=== PATIENT | female | born 1995 | race African-American/Black ===

== ENCOUNTER 2018-09-08 11:03 | Emergency (ER) | payer OTHER ==
[~2018-09-08] VITALS: Ht 160 cm; Wt 68.0 kg
[~2018-09-08 11:03] MED LIST: ACCUNEB SO1.25 MG/1 INH; IBUPROFEN 800800 M1 PO; IBUPROFEN 800800 MG PO; PREDNISONE 20 M20 MG PO; TESSALON PERLE100 MG PO
[2018-09-08] MEDS ORDERED: TESSALON PERLE100 M1 PO (11:40)
[2018-09-08] MEDS ORDERED: ROBITUSSIN COU237 M2 PO (11:40)
[2018-09-08 12:27] VITALS: BP 125/80
== END 2018-09-08 12:31 | disposition home or self-care (01) ==
LOC: ER 11:03
DX: J00 Acute nasopharyngitis [common cold] (principal); R10.9 Unspecified abdominal pain; J45.909 Unspecified asthma, uncomplicated

== ENCOUNTER 2021-04-09 08:34 | Emergency (ER) | payer OTHER ==
[~2021-04-09] VITALS: Ht 160 cm; Wt 66.7 kg
[~2021-04-09 08:34] MED LIST changes: +ROBITUSSIN COU237 M2 PO; +TESSALON PERLE100 M1 PO
[2021-04-09 09:09] LABS: URINE BILIRUBIN NEGATIVE (Negative); URINE BLOOD NEGATIVE (Negative); URINE CLARITY CLEAR; URINE COLOR YELLOW; URINE GLUCOSE-RANDOM* NEGATIVE (Negative); URINE KETONES NEGATIVE (Negative); URINE LEUKOCYTES-REFLEX NEGATIVE (Negative); URINE NITRITE-REFLEX NEGATIVE (Negative); URINE PROTEIN (DIPSTICK) NEGATIVE (Negative); URINE UROBILINOGEN 0.2 E.U./dl (0.2-1.0)
[2021-04-09] MEDS ORDERED: DOXYCYCLINE 10100 MG PO (09:52)
[2021-04-09 10:11] VITALS: BP 118/78
== END 2021-04-09 10:12 | disposition home or self-care (01) ==
LOC: ER 08:34
PROVIDERS: Emergency Medicine
DX: N89.8 Other specified noninflammatory disorders of vagina (principal); R10.9 Unspecified abdominal pain; M54.9 Dorsalgia, unspecified; Z20.2 Contact with and (suspected) exposure to infections with a predominantly sexual mode of transmission; J45.909 Unspecified asthma, uncomplicated; Z79.899 Other long term (current) drug therapy